=== PATIENT | female | born 1950 | race Caucasian/White ===

== ENCOUNTER → 2018-03-25 | Outpatient (CLI) | payer OTHER ==
[~2018-03-25] MED LIST: ALBU3IS INH; ALBU90OI6 INH; ALLEGRA PO; ASCO500 PO; ASPI81EC PO; CHOL10002 PO; DOXY100 PO; EZET10 PO; FENO160 PO; HYDCHL25 PO; LEVSOD125 PO; LISHYD2012 PO; LISI20 PO; MAGIC MOUTHWASH; MAGNESIUM PO; MULVITMIND PO; POTCHL20ER PO; PRED20 PO; Perforomis20 MCG/2 M IH
[2018-03-25 11:33] LABS: CHOL/HDL RATIO 5.6; Cholesterol 211 mg/dL (50-200); Free Thyroxine 1.27 ng/dL (0.70-1.60); HDL Cholesterol 38 mg/dL (>39); LDL/HDL RATIO 3.7; Low Density Lipoprotein Chol 142 mg/dL (0-110); Triglycerides 153 mg/dL (30-160); Very Low Density Lipoprot Chol 30 mg/dL (6-32)
== END ==
LOC: LAB 08:07 → LAB SHORT 08:07
PROVIDERS: Nurse Practitioner Family
DX: E03.9 Hypothyroidism, unspecified (principal); E78.5 Hyperlipidemia, unspecified
CPT/HCPCS: 36415; 80061; 84439; 84443

== ENCOUNTER → 2022-10-15 | Outpatient (CLI) | payer OTHER ==
[~2022-10-15] MED LIST changes: +ACETAMINOPHEN500 MG PO; +HYDR1TAB94 PO
== END ==
LOC: LAB SHORT 10:29 → LAB 10:29
DX: R30.0 Dysuria (principal)
CPT/HCPCS: 87086

== ENCOUNTER 2023-01-05 01:44 | Inpatient (IN) | payer OTHER ==
[~2023-01-05] VITALS: Ht 162.6 cm; Wt 81.7 kg
[2023-01-05 02:10] LABS: BASOPHILS ABSOLUTE AUTO 0.09 K/mm3 (0.00-0.23); BASOPHILS PERCENT AUTO 1 % (0-2); EOSINOPHILS ABSOLUTE AUTO 0.05 K/mm3 (0.00-0.68); EOSINOPHILS PERCENT AUTO 0 % (0-6); Hematocrit 46.8 % (33.0-51.0); Hemoglobin 16.2 g/dL (11.5-16.0); IMMATURE GRAN ABSOLUTE AUTO 0.06 K/mm3 (0.00-0.10); IMMATURE GRAN PERCENT AUTO 1 % (0-1); LYMPHOCYTES ABSOLUTE AUTO 1.12 K/mm3 (0.84-5.20); LYMPHOCYTES PERCENT AUTO 10 % (21-46); MONOCYTES ABSOLUTE AUTO 1.08 K/mm3 (0.16-1.47); MONOCYTES PERCENT AUTO 10 % (4-13); Mean Corpuscular HGB 29.8 pg (26.0-34.0); Mean Corpuscular HGB Conc 34.6 g/dL (31.5-36.5); Mean Corpuscular Volume 86 fL (80-100); Mean Platelet Volume 9.9 fL (9.1-12.4); NEUTROPHILS ABSOLUTE AUTO 8.87 K/mm3 (1.96-9.15); NEUTROPHILS PERCENT AUTO 79 % (41-73); Platelet Count 202 K/mm3 (150-400); RDW Coefficient Variation 14.9 % (11.7-14.2); RDW Standard Deviation 46.7 fL (35.1-46.3); Red Blood Cell Count 5.43 M/mm3 (3.80-5.20); White Blood Cell Count 11.27 K/mm3 (4.00-11.30)
[2023-01-05 02:29] LABS: Albumin, Blood 3.8 g/dL (3.4-5.0); Albumin/Globulin Ratio 0.8 (0.8-1.8); Bilirubin, Total 0.7 mg/dL (0.1-1.0); Creatinine, Blood 0.93 mg/dL (0.40-1.00); Globulin, Blood 4.7 g/dL (2.2-4.0); Potassium, Blood 2.7 mmol/L (3.5-5.5); Total Protein, Blood 8.5 g/dL (6.4-8.2)
[2023-01-05 03:56] LABS: Source, Urine Clean Catch
[2023-01-05 04:16] LABS: Appearance, Urine Clear (Clear); Bilirubin, Urine Neg (Neg); Blood, Urine 3+ (Neg); Color, Urine Yellow (P-Yellow); Glucose Qualitative, Urine Neg (Neg); Ketones, Urine Neg (Neg); Leukocyte Esterase, Urine Neg (Neg); Nitrite, Urine Neg (Neg); Protein, Urine 2+ (Neg); Urobilinogen, Urine 1+ (Normal); pH, Urine 6.5 (5.0-8.0)
[2023-01-05 04:23] LABS: Bacteria Few /hpf; Mucus Light (0-Heavy); Squamous Epithelial Cells Mod /hpf (Few); White Blood Cells, Urine 0-2 /hpf (0-5)
[2023-01-05 06:17] LABS: U Amphetamine Screen Not Detected; U Barbituate Screen Not Detected; U Benzodiazapine Screen Not Detected; U Buprenorphine Screen Not Detected; U Cannabinoids Screen Not Detected; U Cocaine Screen Not Detected; U Methadone Screen Not Detected; U Methamphetamine Screen Not Detected; U Opiates Screen Not Detected; U Oxycodone Screen Not Detected; U Phencyclidine Screen Not Detected; U Propoxyphene Screen Not Detected
[2023-01-05 06:21] LABS: Thyroid Stimulating Hormone 85.2 uIU/mL (0.360-4.800)
[2023-01-05 06:49] LABS: Influenza A, PCR NEGATIVE (NEGATIVE); Influenza B, PCR NEGATIVE (NEGATIVE); Resp Syncytial Virus, PCR NEGATIVE (NEGATIVE)
[2023-01-05 06:58] LABS: SARS-Cov-2 (COVID-19) PCR, MMC POSITIVE (NEGATIVE)
--- NOTE | 2023-01-05 07:16 | NUR ---
PATIENT ARRIVED ON UNIT AT 0640. ASSISTED PATIENT INTO BED, PUT PATIENT IN GOWN AND BREIF. RECIEVED CALL WHILE GIVING BEDSIDE REPORT THAT PATIENT IN COVID POSITIVE. PLACED ISO CART OUTSIDE OF ROOM AND DAY SHIFT NURSE WAS AWARE OF POSITIVE RESULT. PATIENT CONFUSED. BED ALARM ON. CALL LIGHT IN REACH.
[2023-01-05 08:51] LABS: Bun/Creatinine Ratio 11.5 (12.0-20.0); Calcium, Blood 8.3 mg/dL (8.5-10.1); Creatinine, Blood 0.87 mg/dL (0.40-1.00); Magnesium, Blood 1.9 mg/dL (1.6-2.4); Phosphorus, Blood 1.7 mg/dL (2.5-4.9)
[2023-01-05 15:35] LABS: Bun/Creatinine Ratio 11.6 (12.0-20.0); Creatinine, Blood 0.87 mg/dL (0.40-1.00); Potassium, Blood 2.4 mmol/L (3.5-5.5)
--- NOTE | 2023-01-05 16:10 | NUR ---
LATE ENTRY/1130 PT'S IV IN HER L AC IS NOT INFUSING. PT UNABLE TO COGNITIVELY UNDERSTAND TO KEEP HER ARM STRAIGHT TO ALLOW FLUIDS TO INFUSE. WILL ATTEMPT NEW IV START. 1300: IV START UNSUCCESSFUL. WILL SEEK ASSISTANCE FROM ANOTHER RN. 1400: RN ASSISTANCE WAS SUCCESSFUL WITH IV START. FLUIDS INFUSING. 1550: VIA PH CALL FROM LAB RECEIVED REPORT THAT PT'S K IS 2.4. 1612: RECEIVED VERBAL ORDER FROM DR. DONNELLY FOR 40 MEQ OF IV K. ORDER PLACED.
--- NOTE | 2023-01-05 17:24 | NUR ---
SHIFT SUMMARY PT IS CONFUSED, IS RE-DIRECTABLE, COOPERATIVE. IS ABLE TO PIVOT TO BSC WITH 1 PERSON ASSIST. CAN BE IMPULSIVE, GETTING UOB SETTING OFF BED ALARM. VSS. APPETITE IS MARGINAL. IS ON RA AND SATING >90%. DENIES PAIN OR DISCOMFORT. DENIES SOB. BED ALRAM ON, CALL LIGHT WITHIN REACH.
[2023-01-05 20:33] LABS: Creatinine, Blood 0.91 mg/dL (0.40-1.00); Potassium, Blood 2.9 mmol/L (3.5-5.5)
[2023-01-06 04:30] LABS: BASOPHILS ABSOLUTE AUTO 0.04 K/mm3 (0.00-0.23); BASOPHILS PERCENT AUTO 1 % (0-2); EOSINOPHILS ABSOLUTE AUTO 0.18 K/mm3 (0.00-0.68); EOSINOPHILS PERCENT AUTO 3 % (0-6); Hematocrit 42.2 % (33.0-51.0); Hemoglobin 14.5 g/dL (11.5-16.0); IMMATURE GRAN ABSOLUTE AUTO 0.03 K/mm3 (0.00-0.10); IMMATURE GRAN PERCENT AUTO 1 % (0-1); LYMPHOCYTES ABSOLUTE AUTO 1.41 K/mm3 (0.84-5.20); LYMPHOCYTES PERCENT AUTO 21 % (21-46); MONOCYTES ABSOLUTE AUTO 0.84 K/mm3 (0.16-1.47); MONOCYTES PERCENT AUTO 13 % (4-13); Mean Corpuscular HGB 29.8 pg (26.0-34.0); Mean Corpuscular HGB Conc 34.4 g/dL (31.5-36.5); Mean Corpuscular Volume 87 fL (80-100); Mean Platelet Volume 9.2 fL (9.1-12.4); NEUTROPHILS ABSOLUTE AUTO 4.15 K/mm3 (1.96-9.15); NEUTROPHILS PERCENT AUTO 62 % (41-73); Platelet Count 223 K/mm3 (150-400); RDW Standard Deviation 47.6 fL (35.1-46.3); Red Blood Cell Count 4.87 M/mm3 (3.80-5.20); White Blood Cell Count 6.65 K/mm3 (4.00-11.30)
[2023-01-06 05:03] LABS: Albumin, Blood 2.8 g/dL (3.4-5.0); Albumin/Globulin Ratio 0.7 (0.8-1.8); Bilirubin, Total 0.6 mg/dL (0.1-1.0); Bun/Creatinine Ratio 10.9 (12.0-20.0); Calcium, Blood 7.9 mg/dL (8.5-10.1); Creatinine, Blood 0.74 mg/dL (0.40-1.00); Globulin, Blood 3.8 g/dL (2.2-4.0); Magnesium, Blood 1.8 mg/dL (1.6-2.4); Phosphorus, Blood 2.5 mg/dL (2.5-4.9); Potassium, Blood 2.7 mmol/L (3.5-5.5); Total Protein, Blood 6.6 g/dL (6.4-8.2)
--- NOTE | 2023-01-06 05:39 | NUR ---
SUMMARY: NO ACUTE EVENTS OVERNIGHT. PATIENTIS CONFUSED AOX1-2. PLEASANT WITH STAFF AND EASILY REORIENTED. AMBULATING OUT OF BED TO COMMODE WITH 1X ASSIST. VSS. IV FLUIDS RUNNING, POTASSIUM REPLACEMENT FINISHED START OF SHIFT. ON ISO FOR COVID. PATIENT O2 STABLE ON ROOM AIR.
--- NOTE | 2023-01-06 10:04 | NUR ---
SPOKE TO DR DONNELLY- ON MORNING ROUNDS, PT POTASSIUM WAS 2.7 THIS AM. RECIEVED AN ORDER FOR 40MEQ IV POTASSIUM AND CHANGE IVF TO NS AT 75 FROM LR AT 100. ORDERS PLACED IN ORDER MANAGEMENT. WILL ADMINISTER ONCE VERIFIED.
--- NOTE | 2023-01-06 15:16 | NUR ---
PT SETTING OFF THE BED ALARM MORE FREQUENTLY. PT IS CONFUSED. PT ASSISTED TO THE BATHROOM WHERE SHE VOIDED 350ML. SHE SET OFF THE BED ALARM AND WAS AGAIN ASSISTED TO THE BATHROOM WHERE SHE DID NOT VOID, ONCE SHE WAS BACK IN BED SHE SAID "WAIT! I HAVE TO PEE SO BAD!" SHE WAS AGAIN ESCORTED TO THE BATHROOM WHERE SHE DID NOT VOID. BLADDER SCAN WAS PERFORMED MULTIPLE TIMES THERE IS OML. AFTER SCAN PT REQUESTING TO GO TO THE BATRHROOM AGAIN. EXPLAINED THAT THE BLADDER SCAN SHOWS NOTHING THERE. THE PT RELAXED AND WAS WILLING TO TRY TO TAKE A NAP AT THAT TIME. WILL CTM AND SPEAK TO .
--- NOTE | 2023-01-06 19:26 | NUR ---
SHIFT SUMMARY- PT ALERT AND ORIENTED TO SELF. SHE IS VERY FORGETFUL. THE PT WILL FORGET SHE HAS ALREADY GONE TO THE BATHROOM WHEN SHE IS GETTING BACK INTO BED FROM GOING TO THE BATHROOM. BLADDER SCAN SHOWS 0 POST VOID RESIDUAL. PT IS A [employer]IA [employer] RISK, SHE FORGETS HER LIMITATIONS AND IS UNSTEADY ON HER FEET. THE PT DAUGHTER POORNIMA BROUGHT IN THE POA PAPERWORK (ON THE FRONT OF THE CHART). PER THE DAUGHTER POORNIMA THE PT LIVES WITH HER AND SHE PROVIDES DAILY CARE FOR HER. THE PT ASKED FOR A CIGARETTE THIS EVENING, SHE STATED SHE SMOKES A PACK A DAY, BUT DOES NOT RECALL LIVING WITH HER DAUGHTER. UNABLE TO DETERMINE IF THE PT IS ACTUALLY SMOKING CURRENTLY OR IF THIS IS AN OLD MEMORY. ATTEMPTED TO CALL THE DAUGHTER POORNIMA TO DETERMINE THIS AND RECIEVED NO ANSWER. PASSED ON TO NIGHT RN. PT IS IN BED, PREPARING TO GO TO THE BATHROOM AGAIN AT SHIFT CHANGE. NIGHT RN IS AWARE.
--- NOTE | 2023-01-07 05:05 | NUR ---
ORIENTED TO SELF. REPEATS SAME QUESTIONS FREQUENTLY THROUGHOUT THE NIGHT. "DID I TAKE YOUR BED? DO YOU KNOW POORNIMA? SHOULD I SLEEP OUT HERE?" PLEASANT AND REDIRECTABLE. AMBULATES SBA TO TOILET. DOES NOT USE CALL LIGHT, BED ALARM ON. COVID ISOLATION INITIATED IN ROOM UPON TRANSFER. VSS ON RA. NO EVENTS OVER NIGHT.
[2023-01-07 06:32] LABS: Bun/Creatinine Ratio 13.5 (12.0-20.0); Calcium, Blood 7.9 mg/dL (8.5-10.1); Creatinine, Blood 0.82 mg/dL (0.40-1.00)
--- NOTE | 2023-01-07 17:37 | NUR ---
SHIFT SUMMARY PT A&OX1, MOOD UP AND DOWN T/O SHIFT. BECAME TEARFUL ONCE DURING SHIFT, PT CONFUSED THINKS SHE IS AT DAUGHTER POORNIMA'S. PT WANTS TO GO OUTSIDE AND HAVE A CIGERETTE REFUSED NICOTINE SUB. TOLERATING PO INTAKE WELL. VSS. CALL LIGHT W/IN REACH. BED ALARM ON FOR SAFETY. QUICKLY BECOMES CONFUSED AND FORGETFUL.
--- NOTE | 2023-01-08 04:31 | NUR ---
A/OX1; SELF. VERY FORGETFUL. PLEASANT /EASILY REDIRECTED. SBA TO BR. LUNGS DIMINISHED. ROOM AIR. OCCASIONAL, CONGESTED COUGH. BED ALARM SET. SLEEP PROMOTED. CALL LIGHT IN REACH; ENCOURAGED TO MAKE NEEDS KNOWN. COVID POSITIVE PRECAUTIONS MAINTAINED. POTENTIALLY DISCHARGING THIS MORNING PER REPORT.
[2023-01-08 05:49] LABS: BASOPHILS ABSOLUTE AUTO 0.04 K/mm3 (0.00-0.23); BASOPHILS PERCENT AUTO 1 % (0-2); EOSINOPHILS ABSOLUTE AUTO 0.04 K/mm3 (0.00-0.68); EOSINOPHILS PERCENT AUTO 1 % (0-6); Hematocrit 40.9 % (33.0-51.0); Hemoglobin 13.8 g/dL (11.5-16.0); IMMATURE GRAN ABSOLUTE AUTO 0.01 K/mm3 (0.00-0.10); IMMATURE GRAN PERCENT AUTO 0 % (0-1); LYMPHOCYTES ABSOLUTE AUTO 2.41 K/mm3 (0.84-5.20); LYMPHOCYTES PERCENT AUTO 41 % (21-46); MONOCYTES ABSOLUTE AUTO 0.51 K/mm3 (0.16-1.47); MONOCYTES PERCENT AUTO 9 % (4-13); Mean Corpuscular HGB 29.6 pg (26.0-34.0); Mean Corpuscular HGB Conc 33.7 g/dL (31.5-36.5); Mean Corpuscular Volume 88 fL (80-100); Mean Platelet Volume 9.5 fL (9.1-12.4); NEUTROPHILS ABSOLUTE AUTO 2.88 K/mm3 (1.96-9.15); NEUTROPHILS PERCENT AUTO 49 % (41-73); Platelet Count 224 K/mm3 (150-400); RDW Coefficient Variation 15.3 % (11.7-14.2); RDW Standard Deviation 48.8 fL (35.1-46.3); Red Blood Cell Count 4.67 M/mm3 (3.80-5.20); White Blood Cell Count 5.89 K/mm3 (4.00-11.30)
[2023-01-08 06:27] LABS: Bun/Creatinine Ratio 15.6 (12.0-20.0); Calcium, Blood 8.2 mg/dL (8.5-10.1); Creatinine, Blood 0.83 mg/dL (0.40-1.00); Thyroid Stimulating Hormone 81.7 uIU/mL (0.360-4.800)
[2023-01-08] MEDS ORDERED: POTCHL20ER PO (15:05)
--- NOTE | 2023-01-08 16:11 | NUR ---
PATIENT DISCHARGED TO HOME ACCOMPANIED BY HER GRANDDAUGHTER MYLENE. MYLENE VERBALIZED UNDERSTANDING OF D/C INSTRUCTIONS. IV SALINE LOCK REMOVED BY Otto WOODARD CNA. OFF UNIT VIA W/C AT 1606. NO PERSONAL BELONGINGS LEFT BEHIND IN ROOM.
== END 2023-01-08 16:00 | disposition home or self-care (01) | DRG 177 ==
LOC: ER 01:44 → MEDS 01:45
PROVIDERS: Hospitalist; Student in an Organized Health Care Education/Training Program; ADMIT Internal Medicine
DX: U07.1 COVID-19 (principal); A41.89 Other specified sepsis; G92.8 Other toxic encephalopathy; J12.82 Pneumonia due to coronavirus disease 2019; J44.0 Chronic obstructive pulmonary disease with (acute) lower respiratory infection; E87.20 Acidosis, unspecified; R79.89 Other specified abnormal findings of blood chemistry; E87.6 Hypokalemia; F03.C0 Unspecified dementia, severe, without behavioral disturbance, psychotic disturbance, mood disturbance, and anxiety; I10 Essential (primary) hypertension; F17.210 Nicotine dependence, cigarettes, uncomplicated; G89.4 Chronic pain syndrome; E89.0 Postprocedural hypothyroidism; E83.39 Other disorders of phosphorus metabolism; Z88.8 Allergy status to other drugs, medicaments and biological substances; Z88.5 Allergy status to narcotic agent; Z88.1 Allergy status to other antibiotic agents; Z88.0 Allergy status to penicillin; Z79.899 Other long term (current) drug therapy; Z79.51 Long term (current) use of inhaled steroids; Z79.811 Long term (current) use of aromatase inhibitors; Z79.82 Long term (current) use of aspirin; Z79.891 Long term (current) use of opiate analgesic
CPT/HCPCS: 0241U; 36415; 70450; 71045; 80048; 80053; 81001; 83605; 83735; 83880; 84100; 84145; 84443; 84484; 85025; 87040; 92610; 93005; 93010; 93306; 93356; 94664; 94760; 96361; 96365; 96366; 96367; 96372; 96374; 97110; 97112; 97116; 97162; 97166; 97530; 97535; 99285-25; A9270; G0378; J0696; J1650; J1956; J3480; J7030; J7050; J7060; J7120

== ENCOUNTER → 2023-02-18 | Outpatient (CLI) | payer OTHER | END | disposition home or self-care (01) | LOC: LAB SHORT 11:59 | DX: R30.0 Dysuria (principal) | CPT/HCPCS: 87086 ==

== ENCOUNTER → 2023-02-25 | Outpatient (CLI) | payer OTHER | END | disposition home or self-care (01) | LOC: LAB SHORT 16:00 → LAB 16:00 | DX: N39.0 Urinary tract infection, site not specified (principal) | CPT/HCPCS: 87086 ==